=== PATIENT | male | born 1965 | race Caucasian/White ===

== ENCOUNTER 2019-12-27 09:11 | Outpatient (CLI) | payer BC ==
[~2019-12-27] VITALS: Ht 172.7 cm; Wt 120.1 kg
[2019-12-27 09:27] VITALS: BP 145/96
[2019-12-27 10:46] LABS: BASOPHILS % (AUTO) 0 % (0-10); EOSINOPHILS # (AUTO) 0.2 10^3/uL (0.0-0.3); EOSINOPHILS % (AUTO) 3 % (0-10); HEMATOCRIT 42 % (40-54); HEMOGLOBIN 13.1 G/DL (13.3-17.7); LYMPHOCYTES # (AUTO) 1.6 X 10^3 (1.0-4.0); LYMPHOCYTES % (AUTO) 21 % (12-44); MEAN CORPUSCULAR HEMOGLOBIN 27 PG (25-34); MEAN CORPUSCULAR HGB CONC 31 G/DL (32-36); MEAN CORPUSCULAR VOLUME 84 FL (80-99); MEAN PLATELET VOLUME 10.5 FL (7.4-10.4); MONOCYTES # (AUTO) 0.5 X 10^3 (0.0-1.0); MONOCYTES % (AUTO) 6 % (0-12); NEUTROPHILS # (AUTO) 5.3 X 10^3 (1.8-7.8); NEUTROPHILS % (AUTO) 70 % (42-75); PLATELET COUNT 322 10^3/uL (130-400); RED CELL DISTRIBUTION WIDTH 15.1 % (10.0-14.5); WHITE BLOOD COUNT 7.6 10^3/uL (4.3-11.0)
[2019-12-27 10:46] LABS: BILIRUBIN,URINE NEGATIVE (NEGATIVE); CLARITY,URINE CLEAR; COLOR,URINE YELLOW; GLUCOSE, URINE (UA) NEGATIVE (NEGATIVE); KETONES,URINE NEGATIVE (NEGATIVE); LEUKOCYTE ESTERASE ,URINE NEGATIVE (NEGATIVE); NITRITE,URINE NEGATIVE (NEGATIVE); PROTEIN,URINE NEGATIVE (NEGATIVE)
[2019-12-27] MEDS ORDERED: PANT40TA3 PO (10:50)
[2019-12-27] MEDS ORDERED: MELO15TA39 PO (10:50)
[2019-12-27] MEDS ORDERED: MULT-1104 PO (10:52)
[2019-12-27 10:54] LABS: BACTERIA,URINE FEW /HPF; SQUAMOUS EPITHELIAL CELL,UR RARE /HPF
[2019-12-27 10:58] LABS: INR 0.9 (0.8-1.4); PROTHROMBIN TIME PATIENT 12.8 SEC (12.2-14.7)
[2019-12-27 11:06] LABS: ALANINE AMINOTRANSFERASE 99 U/L (0-55); ALBUMIN 4.2 GM/DL (3.2-4.5); ALKALINE PHOSPHATASE 75 U/L (40-136); BILIRUBIN,TOTAL 0.3 MG/DL (0.1-1.0); BUN/CREATININE RATIO 23; CALCIUM 9.8 MG/DL (8.5-10.1); CARBON DIOXIDE 22 MMOL/L (21-32); CHLORIDE 107 MMOL/L (98-107); CREATININE SERUM 0.81 MG/DL (0.60-1.30); GFR ESTIMATED > 60; GLUCOSE 110 MG/DL (70-105); POTASSIUM 4.4 MMOL/L (3.6-5.0); SODIUM 139 MMOL/L (135-145); TOTAL PROTEIN 7.6 GM/DL (6.4-8.2)
--- NOTE | 2019-12-27 11:21 | Diagnostic Imaging Report ---
INDICATION: Preoperative evaluation for total knee replacement. COMPARISON: None FINDINGS: Frontal and lateral views of the chest demonstrate normal heart size and pulmonary vascularity. The lungs are clear. There are no signs of infiltrate, pleural effusions or pneumothoraces. The visualized osseous structures show no acute abnormalities. IMPRESSION: 1. No acute process. No signs of infiltrates, effusions or pneumothoraces. Dictated by: Dictated on workstation # [id number]
[2019-12-27 11:54] LABS: ERYTHROCYTE SEDIMENTATION RATE 20 MM/HR (0-30)
[2019-12-27] MEDS ORDERED: CETI10TA20 PO (14:41)
[2019-12-27] MEDS ORDERED: ACET-2267 PO ×2 (14:41)
[2019-12-27] MEDS ORDERED: MULT-1061 PO (14:41)
[2019-12-27] MEDS ORDERED: GLUC15006 PO (14:41)
[2019-12-27] MEDS ORDERED: TURM500C4 PO (14:41)
== END 2019-12-27 10:20 | disposition home or self-care (01) ==
LOC: PREOP 09:11
PROVIDERS: ATTEND Orthopaedic Surgery
DX: Z01.812 Encounter for preprocedural laboratory examination (principal); Z01.811 Encounter for preprocedural respiratory examination; Z01.810 Encounter for preprocedural cardiovascular examination; M17.12 Unilateral primary osteoarthritis, left knee
CPT/HCPCS: 36415; 71046; 80053; 81000; 85025; 85610; 85652; 86850; 86900; 86901; 87081

== ENCOUNTER 2020-01-03 06:00 | Inpatient (IN) | payer BC ==
--- NOTE | 2019-12-27 14:47 | NUR ---
CALLED AND SPOKE WITH THE PATIENT ABOUT HIS MEDICATIONS. HE LISTED HIS OTC MEDS AND STATES HE TAKES PROTONIX 40MG AND MELOXICAM 15MG DAILY PRESCRIPTION. HE LISTED [facility] HIS PHARMACY. [facility] HAS NOT FILLED ANYTHING FOR HIM SINCE 2017 AND IT WAS A DROP. WHEN I ASKED HIM ABOUT THIS HE STATES HE USES THE PHARMACY IN [place] BUT FOR ANY NEW SCRIPTS HE WANTS TO GO TO [facility]. I CALLED [facility] IN [place], THEY FILLED PROTONIX 40MG FOR HIM IN 2016 AND CELEBREX 200MG IN 2017 - THEY HAVE NEVER FILLED MELOXICAM. I CALLED THE PATIENT BACK AND HE STATES HE TAKES HIS SIGNIFICANT OTHERS SUPPLY OF MELOXICAM BUT HE KNOWS IT IS 15MG AND HE TAKES IT EVERYDAY. HE STATES HE DOES TAKE THE PROTONIX DAILY WELL. I LEFT THEM ON THE MED REC REPORTED BY THE PATIENT BUT WAS NOT ABLE TO VERIFY LAST FILL DATES. OTC MEDS: CENTRUM SILVER DAILY ZYRTEC 10MG DAILY GLUCOSAMINE 1500MG DAILY TURMERIC DAILY TYLENOL 2 AM (STATES HE SOMETIMES TAKES 2 AT HS WELL BUT NEEDED)
--- NOTE | 2019-12-28 06:54 | HISTORY AND PHYSICAL ---
DATE OF SERVICE: This will be for inpatient admission on 01/03/2020 for left total knee arthroplasty. HISTORY: The patient is a 54-year-old gentleman with complaints of progressively worsening left knee pain. He has known osteoarthritis. He has undergone treatment with rest, activity modifications. He reports progressive symptoms to the point where he is having difficulty with work. Due to limping, his hip has started bothering him ____ he ambulates due to the knee. Radiographs reveal severe tricompartmental osteoarthritis and due to functional impairment and failure to improve with conservative measures, the patient elected to proceed with surgical intervention. REVIEW OF SYSTEMS: No chest pain, no shortness of breath, no dysuria. PAST MEDICAL HISTORY: Unremarkable. PAST SURGICAL HISTORY: Adenoids, bilateral shoulders, left arm, right knee arthroscopy, right total knee arthroplasty. FAMILY HISTORY: Noncontributory. No local physician. MEDICATIONS: Protonix, Mobic, Zyrtec, senna, turmeric, Centrum, Tylenol. ALLERGIES: No known drug allergies. SOCIAL HISTORY: The patient drinks alcohol rarely. Denies tobacco use. PHYSICAL EXAMINATION: GENERAL: The patient is well developed, well nourished, in no acute distress. HEENT: Normocephalic, atraumatic. Pupils are equal, round, reactive to light. Oropharynx is clear. NECK: Supple, no lymphadenopathy. LUNGS: Clear to auscultation bilaterally. HEART: Regular rate and rhythm. ABDOMEN: Soft, nontender, nondistended. EXTREMITIES: The left knee demonstrates varus alignment. He ambulates with an antalgic gait. There is no varus-valgus laxity. Negative anterior and posterior drawer as moderate effusion. He has patellofemoral crepitus and tenderness along the medial femoral condyle. Range of motion is 0/2/100. IMPRESSION: Severe left knee osteoarthritis. PLAN: Left total knee arthroplasty. Risks, benefits, options, ramifications and recovery were discussed at length with the patient, he understands and wishes to proceed. Of note, the patient will require regular inpatient admission due to pain management, gait abnormalities, need for physical therapy. Job ID: [id number] DocumentID: [id number] Dictated Date: 12/20/2019 17:53:42 Egg Breaking Machine Operator Date: 12/20/2019 18:14:56 Dictated By: JENNIFER LYNN MD
[~2020-01-03] VITALS: Ht 173 cm; Wt 120.1 kg
[2020-01-03] VITALS (11 sets, daily range): BP systolic 125–170; BP diastolic 73–96
[~2020-01-03 06:00] MED LIST: ACET-2267 PO; CETI10TA20 PO; GLUC15006 PO; MELO15TA39 PO; MULT-1061 PO; MULT-1104 PO; PANT40TA3 PO; TURM500C4 PO
[2020-01-03] MEDS ORDERED: CEFUROXIME INJECTION 1,500 MG in WATER (STERILE) FOR INJECTION 15 ML IV ONE (06:15)
[2020-01-03] MEDS ORDERED: BUPIVACAINE 0.5% 30 ML (SENSORCAINE) VIAL ONE (06:39)
[2020-01-03] MEDS ORDERED: MIDAZOLAM 2 MG/2 ML (VERSED) VIAL ONE (06:39)
[2020-01-03] MEDS ORDERED: fentaNYL INJECTION 100 MCG/2 ML AMP ONE (06:39)
[2020-01-03] MEDS ORDERED: LIDOCAINE PF 2% 5 ML (XYLOCAINE) VIAL ONE ×2 (07:02→08:18)
[2020-01-03] MEDS ORDERED: morphine PCA 100 MG/100 ML BAG IV PRN (07:15)
[2020-01-03] MEDS ORDERED: diphenhydrAMINE 50 MG/ML INJ (BENADRYL) IVP PRN (07:15)
[2020-01-03] MEDS ORDERED: CATHETER FLUSH 10 ML SYR IV PRN (07:15)
[2020-01-03] MEDS ORDERED: ONDANSETRON 4 MG/2 ML (SDV) Z0FRAN IVP PRN ×2 (07:15→09:00)
[2020-01-03] MEDS ORDERED: ACETAMINOPHEN 325 MG TABLET PO PRN (07:15)
[2020-01-03] MEDS: LACTATED RINGERS 1,000 ML IV PRN ×2 (07:16→07:50)
--- NOTE | 2020-01-03 07:24 | Progress Note-Pre Operative ---
Pre-Operative Progress Note H&P Reviewed The H&P was reviewed, patient examined and no changes noted. Date Seen by Provider: Jan 03, 2020 Time Seen by Provider: 07:15 Date H&P Reviewed: Jan 03, 2020 Time H&P Reviewed: 07:11 Pre-Operative Diagnosis: left knee primary osteoarthritis JENNIFER LYNN MD Jan 03, 2020 07:24
--- NOTE | 2020-01-03 07:25 | Progress Note-Post Operative ---
Post-Operative Progess Note Surgeon (s)/Grade Teacher (s) Surgeon JENNIFER LYNN MD Grade Teacher: Jalen Jackson Pre-Operative Diagnosis left knee primary osteoarthritis Post-Operative Diagnosis left knee primary osteoarthritis Procedure & Operative Findings Date of Procedure 01/03/20 Procedure Performed/Findings left total knee arthroplasty Anesthesia Type GETA Estimated Blood Loss Estimated blood loss (mL): minimal Specimens/Packing Specimens Removed none Packing: none JENNIFER LYNN MD Jan 03, 2020 07:25
[2020-01-03] MEDS ORDERED: OXYC1TAB87 PO (07:26)
--- NOTE | 2020-01-03 07:28 | D/C HH Face to Face Order ---
D/C Face to Face Orders Reconcile Patient Problems Problems Reviewed?: Yes Instructions for Patient Via Aruna OONi, Patient Instructions/FollowUp: three weeks Physician to follow Patient: three weeks Discharge Diet for Home: Regular Diet Patient Data-Allergies,Ht & Wt Patient Allergies: Coded Allergies: No Known Drug Allergies (Unverified , 12/27/19) Home Health Need/Face to Face Date of Face to Face: Jan 03, 2020 Clinical Findings: Instability, Muscle weakness, Pain with ambulation, Unsteady gait I have seen Pt myyu-bf-[id number]: Yes Discharged To: Home Diagnosis/Conditions: left total knee arthroplasty Patient is Homebound due to: [place] fall risk due to instabilty, Muscle weakness, Pain w/ambulation Homebound Status Due to the above stated illness, injury or surgical procedure (medical condition or diagnosis) and associated clinical findings, the patient is homebound because of his/her inability to leave home except with aid of a supportive device and/or person AND leaving the home requires a considerable and taxing effort or is medically contraindicated. Pt req the following assistanc: Walker Home Health Nursing Orders Home Health Services Order: Physical Therapy-Evaluate & Treat DC left knee tan and apply steri strips 01/17/20 Home Health Infusion Therapy Line Start Date: Jan 03, 2020 Therapy Orders Therapy Orders: Physical Therapy, PT to assess for OT Therapy Specific Orders: Teach enviro modifications/safety, Gait training, Increase strength/endurance, Provider maintenance therapy, Restore ROM Certify Stmt I certify that this patient is under my care and that I, a nurse practitioner or a physician; a animal care assistant working with me, had a face to face encounter that - meets the physician face to face encounter requirements with this patient as dated. JENNIFER LYNN MD Jan 03, 2020 07:28
[2020-01-03] MEDS ORDERED: INTRA-ARTICULAR IU ONE ×5 (07:45)
[2020-01-03] MEDS ORDERED: morphine INJ 10 MG/ML 1ML (SYR OR VIAL) ONE (07:54)
[2020-01-03] MEDS ORDERED: SEVOFLURANE (ULTANE) 15 ML INHAL SOLN ONE ×2 (08:18→08:58)
[2020-01-03] MEDS ORDERED: PROPOFOL INJECTION 50 ML IV ONE (08:18)
[2020-01-03] MEDS ORDERED: ONDANSETRON 4 MG/2 ML (SDV) Z0FRAN ONE (08:18)
[2020-01-03] MEDS ORDERED: MEPERIDINE (DEMEROL) INJ 50 MG/ML IVP ONE (09:00)
[2020-01-03] MEDS ORDERED: fentaNYL INJECTION 100 MCG/2 ML AMP IVP ONE (09:00)
[2020-01-03] MEDS ORDERED: morphine INJ 10 MG/ML 1ML (SYR OR VIAL) IVP ONE (09:00)
--- NOTE | 2020-01-03 09:59 | Progress Note ---
Standard Progress Note Progress Notes/Assess & Plan Date Seen by a Provider: Jan 03, 2020 Time Seen by a Provider: 09:57 Progress/Assessment & Plan post op check No complaints radiographs--HW well positioned without fracture LLE--2plus DP pulse with brisk cap refill. intact DF and PF of toes and ankle with intact sensation to light touch throughout s/p LTKA mobilize as able JENNIFER LYNN MD Jan 03, 2020 09:59
--- NOTE | 2020-01-03 10:03 | Anesthesia-General Post-Op ---
General Patient Condition Mental Status/LOC: Same as Preop Cardiovascular: Satisfactory Nausea/Vomiting: Absent Respiratory: Satisfactory Pain: Controlled Complications: Absent Post Op Complications Complications None Follow Up Care/Instructions Patient Instructions None needed. Anesthesia/Patient Condition Patient Condition Patient is doing well, no complaints, stable vital signs, no apparent adverse anesthesia problems. No complications reported per nursing. MATHEW BENITEZ CRNA Jan 03, 2020 10:03
[2020-01-03] MEDS ORDERED: NS IV 1000 ML 1,000 ML ONE (10:27)
[2020-01-03] MEDS ORDERED: morphine PCA 100 MG/100 ML BAG IV ONE (10:27)
[2020-01-03] MEDS: NS IV 1000 ML 1,000 ML IV SCH ×3 (10:36→22:01)
[2020-01-03] MEDS: SENNA W/DOCUSATE (SENOKOT S) TABLET PO SCH ×2 (10:57→20:08)
--- NOTE | 2020-01-03 14:19 | Physical Therapy Evaluation ---
PT Evaluation-General Medical Diagnosis Admission Date Jan 03, 2020 at 06:00 Medical Diagnosis: left TKA Onset Date: Jan 03, 2020 Therapy Diagnosis Therapy Diagnosis: impaired mobility, strength, endurance, ROM Precautions Precautions/Isolations: Standard Precautions Weight Bear Status Left Lower Extremity: Left Weight Bearing/Tolerated Referral Physician: Jalen Jackson Reason for Referral: Evaluation/Treatment Medical History Additional Medical History PAST SURGICAL HISTORY: Adenoids, bilateral shoulders, left arm, right knee arthroscopy, right total knee arthroplasty. Reviewed History: Yes Social History Home: Single Level Current Living Status: Significant Other PT Steps Into Home: 1 Prior Prior Level of Function SCALE: Activities may be completed with or without assistive devices. 0-Onhbvjggrs-gqljfiu completes the activity by him/herself with no assistance from a helper. 5-Set-up or Clean-up Assistance-helper sets up or cleans up; patient completes activity. [place] assists only prior to or following the activity. 4-Supervision or Touching Assistance-helper provides verbal cues and/or touching/steadying and/or contact guard assistance as patient completes activity. Assistance may be provided throughout the activity or intermittently. 3-Partial/Moderate Assistance-helper does LESS THAN HALF the effort. [place] lifts, holds or supports trunk or limbs, but provides less than half the effort. 2-Substantial/Maximal Assistance-helper does MORE THAN HALF the effort. [place] lifts or holds trunk or limbs and provides more than half the effort. 1-Hdxudkccp-yzthkj does ALL the effort. Patient does none of the effort to complete the activity. Or, the assistance of 2 or more helpers is required for the patient to complete the activity. If activity was not attempted, code reason: 7-Patient Refused. 9-Not Applicable-not attempted and the patient did not perform the activity before the current illness, exacerbation or injury. 10-Not Attempted due to Environmental Limitations-(lack of equipment, weather restraints, etc.). 88-Not Attempted due to Medical Conditions or Safety Concerns. Bed Mobility: 6 Transfers (B,C,W/C): 6 Gait: 6 Stairs: 6 Indoor Mobility (Ambulation): Independent Stairs: Independent PT Evaluation-Current Subjective Patient in bed pre tx, agrees to PT, has no complaints of pain, patient states his knee is pretty numb. Pt/Family Goals to be independent at home Objective Patient Orientation: Person, Place, Situation Attachments: IV ROM/Strength ROM Lower Extremities right knee flexion 90 degrees, extension +5 degrees Strength Lower Extremities NT Sensory Vision: Functional Hearing: Functional Sensation Right Lower Extremit: Intact Sensation Left Lower Extremity: Intact Transfers Roll Left to Right (QC): 6 Sit to Lying (QC): 6 Lying to Sitting/Side of Bed(Q: 6 Sit to Stand (QC): 4 Chair/Jtv-nu-Ztbgc Xfer(QC): 4 SBA for sit to stand and transfers. Occasional cue for safety or positioning. Gait Does the Patient Walk?: Yes Mode of Locomotion: Walk Anticipated Mode of Locomotion: Walk Walk 10 feet (QC): 4 Distance: 40' Gait Assistive Device: FWW Comments/Gait Description Slow but steady ambulation, good step through and weight bearing on right leg. Balance Sitting Static: Normal Sitting Dynamic: Normal Standing Static: Good Standing Dynamic: Good Treatment RLE total knee protocol x10 (AP, QS, HS, SAQ, SLR), CPM donned and set to 70/-2 and fit to patient's leg. Assessment/Needs Patient has impaired mobility, strength, endurance, ROM. Patient is doing very well with ambulation, has good step through and weight bearing. Patient in bed post tx with nurse call, phone, tray, family in the room. Rehab Potential: Fair PT Skilled Nursing Goals Hunter Goals PT Hunter Goals Time Frame: Jan 10, 2020 Roll Left & Right (QC): 6 Sit to Lying (QC): 6 Lying-Sitting on Side/Bed(QC): 6 Sit to Stand (QC): 6 Chair/Otv-tu-Kwuso Xfer(QC): 6 Walk 10 feet (QC): 5 Walk 50ft with 2 Turns (QC): 5 Walk 150 ft (QC): 5 PT Plan Problem List Problem List: Activity Tolerance, Functional Strength, Safety, Balance, Gait, Transfer, Bed Mobility, ROM Treatment/Plan Treatment Plan: Continue Plan of Care Treatment Plan: Bed Mobility, Education, Functional Activity Vaishnavi, Functional Strength, Gait, Safety, Therapeutic Exercise, Transfers Treatment Duration: Jan 10, 2020 Frequency: 11 times per week Estimated Hrs Per Day: .25 hour per day Patient and/or Family Agrees t: Yes Safety Risks/Education Patient Education: Gait Training, Transfer Techniques, Reviewed Use of Ice, Correct Positioning, Safety Issues Teaching Recipient: Patient Teaching Methods: Demonstration, Discussion Response to Teaching: Reinforcement Needed Discharge Recommendations Plan Patient will perform bed mobility and transfer training, balance and endurance training, functional strengthening, stair training, gait training, and education, to improve functional mobility and independence at home. Therapy Discharge Recommendati: Home & Family Time/GCodes Time In: 1324 Time Out: 1337 Total Billed Treatment Time: 23 Total Billed Treatment 1 visit EVL 15' FA 8' DENILSON MCDERMOTT PT Jan 03, 2020 14:18
--- NOTE | 2020-01-03 15:45 | OPERATIVE REPORT ---
DATE OF SERVICE: 01/03/2020 PREOPERATIVE DIAGNOSIS: Left knee primary osteoarthritis. POSTOPERATIVE DIAGNOSIS: Left knee primary osteoarthritis. PROCEDURE: Left total knee arthroplasty. SURGEON: Jack Lynn MD LOG COOKER: Jalen Jackson, who assisted throughout the procedure and closed the incision. ANESTHESIA: General endotracheal by Jalen Richards CRNA. TOURNIQUET TIME: Approximately 70 minutes at 300 mmHg. ESTIMATED BLOOD LOSS: Minimal. DRAINS: None. COMPLICATIONS: None. POSTOPERATIVE PLAN: Routine total knee protocol. The patient was transferred to the recovery room awake and in stable condition. MATERIALS: Microport cemented size 6 femur, cemented size 5+ tibia with 10 mm insert and a cemented size 35 patellar button. STATEMENT OF MEDICAL NECESSITY: The patient is a 54-year-old gentleman with longstanding progressive left knee pain. Radiographs revealed severe medial and patellofemoral arthrosis with complete loss of joint spaces. He tried rest, activity modifications and anti-inflammatories due to functional impairment and failure to improve with conservative measures, the patient elected to proceed with surgical intervention. DESCRIPTION OF PROCEDURE: After risks and benefits of procedure were discussed and questions were answered, informed consent was signed and placed on chart, the operative site was confirmed in the preoperative holding area initialed by the surgeon. The patient was then transferred to the operating room. After adequate levels of general endotracheal anesthetic were obtained, a timeout was called, confirming the operative site. The left lower extremity was prepped and draped in the usual sterile fashion with the leg elevated and the knee flexed, tourniquet was inflated to 300 mmHg. Standard anterior approach was utilized. Hemostasis was obtained with cautery. Medial parapatellar arthrotomy was performed leaving 1 cm cuff on the patella for later reattachment. A portion of the fat pad was resected. A subperiosteal release was performed on the proximal medial tibia being careful to stay on the bony surface. The ACL was resected. Intramedullary guide was passed into the femur. The distal cutting block was placed and distal cut was made. Femur sized to a size 6 cutting block. Block was placed parallel to the epicondylar axis and cuts were made from posterior to anterior. Subperiosteal release was then carefully performed on the posterior distal femur, being careful stay on the bony surface. The intramedullary guide was passed into the tibia. The cutting block was placed. The drop anthony transected the intermalleolar axis and was felt to be in good position. The cut was made. The baseplate was placed and again the drop anthony transected the intermalleolar axis. This was prepared with a drill and keel punch. The femoral trial was placed with the 10 mm insert. There was tightness posteriorly. Therefore, the PCL was released. The trochlear cut was made. The patella was then prepared by resecting 10 mm off the undersurface. Peg guide was placed and peg holes were drilled. The patellar trial was placed. Full extension was easily obtained. 120 degrees of flexion with gravity was easily obtained. There was no anterior/posterior or medial/lateral laxity in flexion or extension. The trials were removed. The joint was irrigated with pulse lavage. Periarticular block was placed in the posterior capsule, medial and lateral retinaculum and extensor mechanism as well as the subcutaneous tissue. The bone ends were irrigated and dried. The tibial baseplate was cemented into position. Excessive cement was removed. Superior surface was irrigated and dried and the polyethylene insert was placed. Distal femur was irrigated and dried and the femoral prosthesis was cemented into position. Excessive cement was removed. The knee was brought into full extension until cement had cured. The undersurface of patella was irrigated and dried. The patellar button was cemented into position. Once the cement had cured, the knee was taken through range of motion. Full extension was easily obtained 120 degrees of flexion with gravity was easily obtained. There was no anterior/posterior or medial/lateral laxity in flexion or extension and the patella tracked well. The joint was further irrigated with pulse lavage. Arthrotomy was closed with #2 FiberWire in hbsyfy-hi-ezkvi interrupted fashion. The wound was further irrigated. 0 Vicryl was used to deep subcutaneous tissue and 2-0 Vicryl for the superficial subcutaneous tissue prior to skin closure. The knee was flexed. The retinacular repair was intact. The patella tracked well. A total of 6 liters of pulse lavage were used throughout the procedure. [place] used on the skin. Soft dressing was applied. The tourniquet was deflated. The patient was transferred to the recovery room awake and in stable condition. Job ID: [id number] DocumentID: [id number] Dictated Date: 01/03/2020 09:21:28 Wafer Abrading Machine Tender Date: 01/03/2020 15:45:04 Dictated By: JACK LYNN MD
[2020-01-03] MEDS: CEFUROXIME INJECTION 750 MG in WATER (STERILE) FOR INJECTION 10 ML IV SCH ×2 (16:15→22:00)
[2020-01-03] MEDS: oxyCODONE/APAP 5/325MG (PERCOCET 5) TABLET PO PRN ×2 (20:09→22:11)
[2020-01-03] MEDS: ENOXAPARIN 40 MG/0.4 ML (LOVENOX) SYR SC SCH (20:10)
[2020-01-04] VITALS (7 sets, daily range): BP systolic 131–161; BP diastolic 69–89
[2020-01-04] MEDS: oxyCODONE/APAP 5/325MG (PERCOCET 5) TABLET PO PRN ×10 (00:09→23:49)
[2020-01-04 06:03] LABS: HEMOGLOBIN 10.8 G/DL (13.3-17.7)
[2020-01-04] MEDS: MULTIVIT W/MINERALS TAB (THERAGRAN M) PO SCH (06:44)
--- NOTE | 2020-01-04 07:47 | Progress Note ---
Standard Progress Note Progress Notes/Assess & Plan Date Seen by a Provider: Jan 04, 2020 Time Seen by a Provider: 07:46 Progress/Assessment & Plan post op check No complaints radiographs--HW well positioned without fracture LLE--2plus DP pulse with brisk cap refill. intact DF and PF of toes and ankle with intact sensation to light touch throughout s/p LTKA mobilize as able Final Diagnosis no complaints Vital Signs Date Time Temp Pulse Resp B/P (MAP) Pulse Ox O2 Delivery O2 Flow Rate FiO2 01/04/20 05:42 18 01/04/20 04:00 37.4 91 18 145/80 (101) 94 NIV CPAP 01/04/20 00:00 38.2 101 20 161/73 (102) 94 Room Air 01/03/20 20:05 18 01/03/20 20:05 Room Air 01/03/20 20:00 37.9 101 18 156/91 (112) 98 Room Air 01/03/20 16:00 36.1 76 18 155/93 (113) 98 Room Air 01/03/20 12:43 35.5 75 18 170/80 (110) 92 OxyMask 01/03/20 10:30 98 Room Air 01/03/20 10:18 36.3 72 17 158/89 (112) 96 OxyMask 2.50 01/03/20 10:15 37.0 20 147/90 (109) 96 OxyMask 3 01/03/20 10:15 OxyMask 3 01/03/20 10:00 OxyMask 3 01/03/20 10:00 20 158/96 (116) 96 OxyMask 3 01/03/20 09:50 20 155/95 (115) 96 OxyMask 5 01/03/20 09:45 OxyMask 5 01/03/20 09:40 20 155/73 (100) 97 OxyMask 8 01/03/20 09:30 OxyMask 10 01/03/20 09:30 20 156/88 (110) 97 OxyMask 10 01/03/20 09:19 37.2 20 125/79 (94) 98 OxyMask 10 01/03/20 09:19 OxyMask 10 I & O 01/04/20 07:00 Intake Total 3080 ml Output Total 1175 ml Balance 1905 ml Laboratory Tests Test 01/04/20 05:42 Range/Units Hemoglobin 10.8 L 13.3-17.7 G/DL Hematocrit 35 L 40-54 % LLE--dressing intact. NVI distally. No calf tenderness. Neg Vinayak's s/p LTKA continue PT/OT JENNIFER LYNN MD Jan 04, 2020 07:47
--- NOTE | 2020-01-04 07:54 | Diagnostic Imaging Report ---
Left knee at 934 hours. INDICATION: Postop. AP and lateral views were obtained. There are no prior studies available for comparison. FINDINGS: There is a total knee prosthesis in place. The prosthetic components appear to be in good position. There is no fracture or acute bony abnormality evident. There is gas in the soft tissues about the knee joint and there are skin tan along the anterior aspect of the knee joint. IMPRESSION: Stable postoperative left knee. Dictated by: Dictated on workstation # [id number]
[2020-01-04] MEDS: ENOXAPARIN 40 MG/0.4 ML (LOVENOX) SYR SC SCH ×2 (08:26→19:41)
[2020-01-04] MEDS: ASPIRIN E.C. 81 MG (ECOTRIN) TAB PO SCH (08:27)
[2020-01-04] MEDS: SENNA W/DOCUSATE (SENOKOT S) TABLET PO SCH ×2 (08:27→19:41)
[2020-01-04] MEDS: NS IV 1000 ML 1,000 ML IV SCH ×2 (08:27→22:13)
--- NOTE | 2020-01-04 10:04 | Physical Therapy Daily Note ---
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 Pain Numeric Pain Scale: 10-Worst Possible Pain Location: Left Location Body Site: Knee Pain Description: Acute Mental Status Patient Orientation: Normal For Age Attachments: IV Transfers SCALE: Activities may be completed with or without assistive devices. 9-Zxksgboqnz-cubtetn completes the activity by him/herself with no assistance from a helper. 5-Set-up or Clean-up Assistance-helper sets up or cleans up; patient completes activity. [place] assists only prior to or following the activity. 4-Supervision or Touching Assistance-helper provides verbal cues and/or touching/steadying and/or contact guard assistance as patient completes activity. Assistance may be provided throughout the activity or intermittently. 3-Partial/Moderate Assistance-helper does LESS THAN HALF the effort. [place] lifts, holds or supports trunk or limbs, but provides less than half the effort. 2-Substantial/Maximal Assistance-helper does MORE THAN HALF the effort. [place] lifts or holds trunk or limbs and provides more than half the effort. 7-Mmpljfzhf-rhrvjm does ALL the effort. Patient does none of the effort to complete the activity. Or, the assistance of 2 or more helpers is required for the patient to complete the activity. If activity was not attempted, code reason: 7-Patient Refused. 9-Not Applicable-not attempted and the patient did not perform the activity before the current illness, exacerbation or injury. 10-Not Attempted due to Environmental Limitations-(lack of equipment, weather restraints, etc.). 88-Not Attempted due to Medical Conditions or Safety Concerns. Roll Left & Right (QC): 6 Sit to Lying (QC): 6 Sit to Stand (QC): 6 Chair/Akn-mm-Dmpeg Xfer(QC): 6 Weight Bearing Left Lower Extremity: Left Weight Bearing/Tolerated Gait Training Does the Patient Walk?: Yes Distance: 275' Walk 10 feet (QC): 6 Walk 50 ft with 2 Turns(QC): 6 Walk 150 ft (QC): 6 Gait Assistive Device: FWW slow and antalgic Exercises Supine Ex: Ankle pumps, Quad Set, Heel Slides, Straight leg raise Supine Reps: 15 Seated Therapy Exercises: Ankle pumps, Long arc quads Seated Reps: 15 Assessment Patient tolerated treatment well and is up in recliner with needs met. PT to increase activity as tolerated by patient. PT Penitentiary Goals Penitentiary Goals PT Penitentiary Goals Time Frame: Jan 10, 2020 Roll Left & Right (QC): 6 Sit to Lying (QC): 6 Lying-Sitting on Side/Bed(QC): 6 Sit to Stand (QC): 6 Chair/Iog-qs-Qsqpr Xfer(QC): 6 Walk 10 feet (QC): 5 Walk 50ft with 2 Turns (QC): 5 Walk 150 ft (QC): 5 PT Plan Treatment/Plan Treatment Plan: Continue Plan of Care Treatment Plan: Bed Mobility, Education, Functional Activity Vaishnavi, Functional Strength, Gait, Safety, Therapeutic Exercise, Transfers Treatment Duration: Jan 10, 2020 Frequency: 11 times per week Estimated Hrs Per Day: .25 hour per day Patient and/or Family Agrees t: Yes Time/GCodes Time In: 900 Time Out: 923 Total Billed Treatment Time: 23 Total Billed Treatment 1 visit GT 8 min EX 15 min ALY BILLINGS PT Jan 04, 2020 10:04
--- NOTE | 2020-01-04 13:26 | NUR ---
CM/SS visited with the patient for discharge planning. Plan: The patient will return home with home health and walker. Home Health: The patients ricardo works at the [facility] and wants the patient to have [facility]. CM/SS called and faxed over the medical records. They stated they will start on Wednesday. DME: The patient does not have one currently and his fialvaro has already obtained a FWW for the patient. There are no other needs at this time.
--- NOTE | 2020-01-04 14:41 | Physical Therapy Daily Note ---
PT Daily Note-Current Subjective Patient agrees to PT. Pain Numeric Pain Scale: 10-Worst Possible Pain Location: Left Location Body Site: Knee Pain Description: Acute Mental Status Patient Orientation: Normal For Age Attachments: IV Transfers SCALE: Activities may be completed with or without assistive devices. 9-Sywbgmebvz-nblehyp completes the activity by him/herself with no assistance from a helper. 5-Set-up or Clean-up Assistance-helper sets up or cleans up; patient completes activity. [place] assists only prior to or following the activity. 4-Supervision or Touching Assistance-helper provides verbal cues and/or touching/steadying and/or contact guard assistance as patient completes activity. Assistance may be provided throughout the activity or intermittently. 3-Partial/Moderate Assistance-helper does LESS THAN HALF the effort. [place] lifts, holds or supports trunk or limbs, but provides less than half the effort. 2-Substantial/Maximal Assistance-helper does MORE THAN HALF the effort. [place] lifts or holds trunk or limbs and provides more than half the effort. 9-Qmyozicws-espvun does ALL the effort. Patient does none of the effort to complete the activity. Or, the assistance of 2 or more helpers is required for the patient to complete the activity. If activity was not attempted, code reason: 7-Patient Refused. 9-Not Applicable-not attempted and the patient did not perform the activity before the current illness, exacerbation or injury. 10-Not Attempted due to Environmental Limitations-(lack of equipment, weather restraints, etc.). 88-Not Attempted due to Medical Conditions or Safety Concerns. Roll Left & Right (QC): 6 Sit to Lying (QC): 6 Lying to Sitting/Side of Bed(Q: 6 Sit to Stand (QC): 6 Chair/Zqb-ml-Iiwxx Xfer(QC): 6 Weight Bearing Left Lower Extremity: Left Weight Bearing/Tolerated Gait Training Does the Patient Walk?: Yes Distance: 200' Walk 10 feet (QC): 6 Walk 50 ft with 2 Turns(QC): 6 Walk 150 ft (QC): 6 Gait Assistive Device: FWW slow and antalgic Exercises Supine Ex: Ankle pumps, Quad Set, Heel Slides, Straight leg raise Supine Reps: 15 Assessment Patient tolerated treatment well and remains in bed after treatment with polar pack in place. Plan dismissal in a.m. after PT. PT Decatizer Goals Decatizer Goals PT Decatizer Goals Time Frame: Jan 10, 2020 Roll Left & Right (QC): 6 Sit to Lying (QC): 6 Lying-Sitting on Side/Bed(QC): 6 Sit to Stand (QC): 6 Chair/Pyc-xk-Jhvox Xfer(QC): 6 Walk 10 feet (QC): 5 Walk 50ft with 2 Turns (QC): 5 Walk 150 ft (QC): 5 PT Plan Treatment/Plan Treatment Plan: Continue Plan of Care Treatment Plan: Bed Mobility, Education, Functional Activity Vaishnavi, Functional Strength, Gait, Safety, Therapeutic Exercise, Transfers Treatment Duration: Jan 10, 2020 Frequency: 11 times per week Estimated Hrs Per Day: .25 hour per day Patient and/or Family Agrees t: Yes Time/GCodes Time In: 1405 Time Out: 1423 Total Billed Treatment Time: 18 Total Billed Treatment 1 visit FA 18 min ALY BILLINGS PT Jan 04, 2020 14:41
--- NOTE | 2020-01-04 15:08 | Occupational Therapy Eval ---
OT Evaluation-General/PLF Medical Diagnosis Admission Date Jan 03, 2020 at 06:00 Medical Diagnosis: left TKA Onset Date: Jan 03, 2020 Therapy Diagnosis Therapy Diagnosis: Decreased ADL skills Precautions Precautions/Isolations: Fall Prevention, Standard Precautions Safety Interventions: Reorient-PRN Weight Bear Status Weight Bearing Restriction: Weight Bearing/Tolerated Referral Physician: Jalen Jackson Referral Reason: Activity Tolerance, Self Care, Evaluation/Treatment, Strengthening/ROM Medical History Additional Medical History Right shoulder replacement, right TKR Current History Elective left knee surgery Reviewed History: Yes Social History Home: Single Level Current Living Status: Significant Other Entry Into Home: Stairs Without Railing Steps Into Home: 1 ADL-Prior Level of Function SCALE: Activities may be completed with or without assistive devices. 6-Kqvjqnsvwf-jwvssra completes the activity by him/herself with no assistance from a helper. 5-Set-up or Clean-up Assistance-helper sets up or cleans up; patient completes activity. [place] assists only prior to or following the activity. 4-Supervision or Touching Assistance-helper provides verbal cues and/or touching/steadying and/or contact guard assistance as patient completes activity. Assistance may be provided throughout the activity or intermittently. 3-Partial/Moderate Assistance-helper does LESS THAN HALF the effort. [place] lifts, holds or supports trunk or limbs, but provides less than half the effort. 2-Substantial/Maximal Assistance-helper does MORE THAN HALF the effort. [place] lifts or holds trunk or limbs and provides more than half the effort. 9-Hljntmkvh-hnuete does ALL the effort. Patient does none of the effort to complete the activity. Or, the assistance of 2 or more helpers is required for the patient to complete the activity. If activity was not attempted, code reason: 7-Patient Refused. 9-Not Applicable-not attempted and the patient did not perform the activity before the current illness, exacerbation or injury. 10-Not Attempted due to Environmental Limitations-(lack of equipment, weather restraints, etc.). 88-Not Attempted due to Medical Conditions or Safety Concerns. ADL PLOF Comments Pt. was independent with daily skills Self Care: Independent Functional Cognition: Independent DME/Equipment: Tub/Shower DME/Equipment Comments Pt. states that he has access to a walker. Occupation: Pt. works at [employer] Self: Yes OT Current Status Subjective Pt. reports 10/10 pain in knee with movement. Pt. has [employer] REPA[employer]ER and has had pain pill. Mental Status/Objective Patient Orientation: Person, Place Attachments: IV Current Upper Extremity ROM WFL Upper Extremity Strength WFL ADL-Treatment Eating (QC): 6 Oral Hygiene (QC): 5 (Pt. had already completed with set up.) Shower/Bathe Self (QC): 4 (CGA to stand and wash evangelista area. Did not wash bilateral LE as pt. has TEDs on and original dressing that will change. Pt. sponge bathed on side of bed.) Lower Body Dressing (QC): 7 On/Off Footwear (QC): 2 (Pt. unable to reach feet seated on side of bed. OT brought in ADL equipment and pt. able to doff/don sock with SBA.) OT attempted treatment 3 times. Pt. eating and in pain the first time. OT came back and pt. on CPM and had just finished with PT. Requests for OT to come [place] k. OT came back and pt. agreed to treatment. Transferred supine-sit with SBA. Pt. sat on side of bed and completed sponge bath. OT brought in AE and educated him on it. Pt. able to stand from raised surface with CGA. Pt. did not have shorts available and declined donning underwear at this time. Practiced doffing/donning slipper socks with AE. Pt. seated on side of bed and PT came in to assist him again. Education OT Patient Education: Correct positioning, Modified ADL techniques, Progress toward Goal/Update tx plan, Purpose of tx/functional activities, Reviewed precautions, Rehab process, Transfer techniques, Use of adapted equipment Teaching Recipient: Patient Teaching Methods: Demonstration, Discussion Response to Teaching: Verbalize Understanding, Return Demonstration OT Fci Goals Medical Insurance Claims Specialist Goals Time Frame: Jan 11, 2020 Eating (QC): 6 Oral Hygiene (QC): 6 Toileting Hygiene (QC): 6 Shower/Bathe Self (QC): 5 Upper Body Dressing (QC): 6 Lower Body Dressing (QC): 6 On/Off Footwear (QC): 6 Additional Goals: 1-Demonstrate ADL Tasks, 2-Verbalize Understanding, 3- ImproveStrength/Vaishnavi 1=Demonstrate adherence to instructed precautions during ADL tasks. 2=Patient will verbalize/demonstrate understanding of assistive devices/modifications for ADL. 3=Patient will improve strength/tolerance for activity to enable patient to perform ADL's. OT Education/Plan Problem List/Assessment Assessment: Decreased Activ Tolerance, Impaired I ADL's, Impaired Self-Care Skills Discharge Recommendations Plan/Recommendations: Continue POC Therapy Discharge Recommendati: Post Acute OT Equpiment Recommendations-D/C: Extended Bath Bench, Hip Kit Treatment Plan/Plan of Care Treatment,Training & Education: Yes Patient would benefit from OT for education, treatment and training to promote independence in ADL's, mobility, safety and/or upper extremity function for ADL's. Plan of Care: ADL Retraining, Functional Mobility, UE Funct Exercise/Act Treatment Duration: Jan 11, 2020 Frequency: 5 times per week Estimated Hrs Per Day: .5 hour per day Agreement: Yes Rehab Potential: Good Time/GCodes Start Time: 08:35 Stop Time: 14:10 Total Time Billed (hr/min): 30 Billed Treatment Time 0835 1, visit 1120 1, visit [id number] 1, EVM x 15minutes, ADL x 15minutes PHONG RODRIGES OT Jan 04, 2020 15:08
--- NOTE | 2020-01-04 15:24 | NUR ---
IRF Evaluation Order received to evaluate patient for the ARU. Chart review complete and it appears patient is ambulating (200ft, FWW), transferring and completing bed mobility with independence; therefore, patient does not require intensive therapies. Thank you for this referral.
[2020-01-05] MEDS: oxyCODONE/APAP 5/325MG (PERCOCET 5) TABLET PO PRN ×4 (04:05→16:08)
[2020-01-05 04:20] VITALS: BP 154/80
--- NOTE | 2020-01-05 04:38 | DISCHARGE SUMMARY ---
DATE OF SERVICE: DIAGNOSIS: Left knee primary osteoarthritis. PROCEDURE: Left total knee arthroplasty. SUMMARY: The patient is a 54-year-old gentleman, who underwent a left total knee arthroplasty on the day of admission. Postoperatively, he did well. At the time of discharge, his wound was clean and dry and no calf tenderness. Negative Homans sign. He was tolerating pain with oral pain medication and tolerating diet well. CONDITION AT DISCHARGE: Good. DISCHARGE DIET: Regular. FOLLOWUP: Followup is in three weeks. Home physical therapy has been arranged. DISCHARGE MEDICATIONS: Home medications, Percocet as needed for pain and aspirin for four weeks. Job ID: [id number] DocumentID: [id number] Dictated Date: 01/04/2020 16:27:09 Stock Saw Operator Date: 01/05/2020 04:37:52 Dictated By: JENNIFER LYNN MD
[2020-01-05] MEDS: MULTIVIT W/MINERALS TAB (THERAGRAN M) PO SCH (05:53)
[2020-01-05 06:17] LABS: HEMOGLOBIN 10.4 G/DL (13.3-17.7)
--- NOTE | 2020-01-05 06:55 | Progress Note ---
Standard Progress Note Progress Notes/Assess & Plan Date Seen by a Provider: Jan 05, 2020 Time Seen by a Provider: 06:54 Progress/Assessment & Plan post op check No complaints radiographs--HW well positioned without fracture LLE--2plus DP pulse with brisk cap refill. intact DF and PF of toes and ankle with intact sensation to light touch throughout s/p LTKA mobilize as able Final Diagnosis feeling better today Vital Signs Date Time Temp Pulse Resp B/P (MAP) Pulse Ox O2 Delivery O2 Flow Rate FiO2 01/05/20 05:53 20 01/05/20 04:20 37.1 98 18 154/80 (104) 98 Room Air 01/04/20 23:40 38.0 114 18 131/69 (89) 93 Room Air 01/04/20 20:40 37.9 01/04/20 19:41 38.4 01/04/20 19:40 Room Air 01/04/20 19:26 38.4 112 16 132/71 (91) 92 Room Air 01/04/20 18:00 20 01/04/20 15:43 38.0 111 20 152/85 (107) 97 NIV CPAP 01/04/20 12:00 36.9 86 18 151/89 (109) 96 NIV CPAP 01/04/20 08:00 95 2.50 01/04/20 08:00 36.8 89 18 142/77 (98) 95 NIV CPAP I & O 01/05/20 07:00 Intake Total 2950 ml Output Total 3100 ml Balance -150 ml Laboratory Tests Test 01/05/20 05:53 Range/Units Hemoglobin 10.4 L 13.3-17.7 G/DL Hematocrit 34 L 40-54 % LLE--incision clean and dry. No calf tenderness. Pos SLR s/p LTKA doing well DC later today PT today JENNIFER LYNN MD Jan 05, 2020 06:55
[2020-01-05] MEDS ORDERED: morphine INJ 4 MG/ML 1 ML (VIAL/SYRINGE) IVP PRN (07:00)
[2020-01-05 07:52] VITALS: BP 157/81
--- NOTE | 2020-01-05 08:00 | NUR ---
7.5 ml Morphine REHABILITATION PHYSICIAN wasted with Deborah ANN.
[2020-01-05] MEDS: SENNA W/DOCUSATE (SENOKOT S) TABLET PO SCH (09:40)
[2020-01-05] MEDS: ENOXAPARIN 40 MG/0.4 ML (LOVENOX) SYR SC SCH (09:40)
[2020-01-05] MEDS: ASPIRIN E.C. 81 MG (ECOTRIN) TAB PO SCH (09:40)
--- NOTE | 2020-01-05 10:11 | Physical Therapy Daily Note ---
PT Daily Note-Current Subjective Patient agrees to PT. He reports patient is much better on this date. Pain Numeric Pain Scale: 5-Moderate Pain Location: Left Location Body Site: Knee Pain Description: Acute Mental Status Patient Orientation: Normal For Age Transfers SCALE: Activities may be completed with or without assistive devices. 9-Tszdzpazmw-ygljsbu completes the activity by him/herself with no assistance from a helper. 5-Set-up or Clean-up Assistance-helper sets up or cleans up; patient completes activity. [place] assists only prior to or following the activity. 4-Supervision or Touching Assistance-helper provides verbal cues and/or touching/steadying and/or contact guard assistance as patient completes activity. Assistance may be provided throughout the activity or intermittently. 3-Partial/Moderate Assistance-helper does LESS THAN HALF the effort. [place] lifts, holds or supports trunk or limbs, but provides less than half the effort. 2-Substantial/Maximal Assistance-helper does MORE THAN HALF the effort. [place] lifts or holds trunk or limbs and provides more than half the effort. 2-Srmvqtmha-mcbxaj does ALL the effort. Patient does none of the effort to complete the activity. Or, the assistance of 2 or more helpers is required for the patient to complete the activity. If activity was not attempted, code reason: 7-Patient Refused. 9-Not Applicable-not attempted and the patient did not perform the activity before the current illness, exacerbation or injury. 10-Not Attempted due to Environmental Limitations-(lack of equipment, weather restraints, etc.). 88-Not Attempted due to Medical Conditions or Safety Concerns. Roll Left & Right (QC): 6 Sit to Lying (QC): 6 Lying to Sitting/Side of Bed(Q: 6 Sit to Stand (QC): 6 Weight Bearing Left Lower Extremity: Left Weight Bearing/Tolerated Gait Training Does the Patient Walk?: Yes Distance: 300' Walk 10 feet (QC): 6 Walk 50 ft with 2 Turns(QC): 6 Walk 150 ft (QC): 6 Gait Assistive Device: FWW safe and functional Exercises Supine Ex: Ankle pumps, Quad Set, Heel Slides, Straight leg raise Supine Reps: 15 Assessment Patient progressing with treatment plan and report compliance with HEP issued by physician at preop. Patient to dismiss to home on this date. PT Candy Counter Clerk Goals Care Home Goals PT Candy Counter Clerk Goals Time Frame: Jan 10, 2020 Roll Left & Right (QC): 6 Sit to Lying (QC): 6 Lying-Sitting on Side/Bed(QC): 6 Sit to Stand (QC): 6 Chair/Nnm-kq-Tzhia Xfer(QC): 6 Walk 10 feet (QC): 5 Walk 50ft with 2 Turns (QC): 5 Walk 150 ft (QC): 5 PT Plan Treatment/Plan Treatment Plan: Discontinue PT, goals met Treatment Plan: Bed Mobility, Education, Functional Activity Vaishnavi, Functional Strength, Gait, Safety, Therapeutic Exercise, Transfers Treatment Duration: Jan 10, 2020 Frequency: 11 times per week Estimated Hrs Per Day: .25 hour per day Patient and/or Family Agrees t: Yes Time/GCodes Time In: 820 Time Out: 850 Total Billed Treatment Time: 30 Total Billed Treatment 1 visit EX 20 min GT 10 min ALY BILLINGS PT Jan 05, 2020 10:11
[2020-01-05 12:00] VITALS: BP 152/88
--- NOTE | 2020-01-05 13:40 | Occ Therapy Progress Note ---
Therapy Progress Note Attempted therapy at 1320. Pt sitting in chair. States he already showered and dressed this morning. Pt states he will be discharging this afternoon. No questions or concerns at this time. 1, visit. LUPE PORTER OT Jan 05, 2020 13:40
== END 2020-01-05 17:10 | disposition home health service (06) | DRG 470 ==
LOC: 4TH 06:00 → SURG 06:01 → 4TH 10:10
PROVIDERS: ADMIT Orthopaedic Surgery; ATTEND Orthopaedic Surgery
PROC: 0SRD0J9 Replacement of Left Knee Joint with Synthetic Substitute, Cemented, Open Approach (ICD-10-PCS; principal; 2020-01-03 07:57)
DX: M17.12 Unilateral primary osteoarthritis, left knee (principal); Z68.41 Body mass index [BMI] 40.0-44.9, adult; K21.9 Gastro-esophageal reflux disease without esophagitis; G47.33 Obstructive sleep apnea (adult) (pediatric); E66.01 Morbid (severe) obesity due to excess calories; Z90.49 Acquired absence of other specified parts of digestive tract; Z96.651 Presence of right artificial knee joint; Z99.89 Dependence on other enabling machines and devices; M06.9 Rheumatoid arthritis, unspecified
CPT/HCPCS: 36415; 73560; 85014; 85018; 86850; 86900; 86901; 94664